=== PATIENT | male | born 1975 | race African-American/Black ===

== ENCOUNTER 2018-01-13 03:17 | Emergency (ER) | payer MEDICAID, SELFPAY ==
[2018-01-13 03:20] VITALS: BP 139/95; PULSE 59; RESP 16; TEMP 36.6; O2SAT 99; BMI 21.9
[2018-01-13 03:39] VITALS: BP 140/91
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
[2018-01-13] MEDS: Acetaminophen 500 MG Tablet 1000 MG PO (05:05)
[2018-01-13] MEDS: Diphth,Pertuss(Acell),Tet Vac 0.5 ML Vial IM (05:06)
[2018-01-13 05:10] VITALS: BP 124/81; PULSE 58; RESP 16; O2SAT 98
--- NOTE | 2018-01-13 06:36 | DCINST.ED_ITS ---
ED Disposition - Plan for ED Patient: Disposition: Home or Assisted Living Chief Complaint: Laceration Instructions: ED Laceration Scalp Stitch Or Stap Referrals: [facility] Doctor,Out of [Primary Care Provider] - 10 Day for suture removal Additional Instructions: Your tetanus was updated. You had a CAT scan of your head that showed no skull fracture or brain bleed. The cut on your scalp was cleaned and repaired with 5 nohemy. Please see your doctor in 10 days to have the nohmey removed. If you cannot follow-up with your doctor you can return to the emergency department or follow-up with any her healthcare provider for staple removal. Keep the area clean and protected with a dry bandage. You can apply antibacterial ointment to help with the healing. If you have any worsening of your condition or any new concerning symptoms, please return immediately to the emergency department for another evaluation.
[2018-01-13 06:48] VITALS: BP 129/82; PULSE 60; RESP 16; O2SAT 97
== END 2018-01-13 07:01 ==
PROVIDERS: Emergency Provider Emergency Medicine
DX: S01.01XA Laceration without foreign body of scalp, initial encounter (principal); X58.XXXA Exposure to other specified factors, initial encounter; Y93.9 Activity, unspecified; Y92.524 Gas station as the place of occurrence of the external cause; Y99.9 Unspecified external cause status; Z23 Encounter for immunization; J45.909 Unspecified asthma, uncomplicated; M19.90 Unspecified osteoarthritis, unspecified site; Z79.899 Other long term (current) drug therapy
CPT/HCPCS: 12002; 70450; 72125; 90715; 99284